=== PATIENT | female | born 1960 | race Caucasian/White ===

== ENCOUNTER 2021-09-26 22:03 | Observation (INO) ==
[2021-09-26] MEDS ORDERED: NITROGLYCERIN SL 0.4 MG/TAB TAB SL STA (22:23)
--- NOTE | 2021-09-26 22:26 | Emergency Department Note ---
Impression & Plan Elevated troponin, Hypertension, Creatinine elevation ADMIT ED Provider Note HPI: The patient is a 61-year-old female with history of hypertension, presents the emergency department with chief complaint of shortness of breath that has been worsening over the past several days. Patient states that her shortness of breath is worsened with exertion. She states that she does have it at rest as well however. Patient denies any fevers, denies any recent coughing, denies any nausea or vomiting, she denies any chest pain. On arrival here to the ED the patient is hypertensive and mildly tachycardic, she is otherwise afebrile, she is saturating well on room air on my initial evaluation. ROS: -Pulmonary: Shortness of breath *10 point review systems was conducted and is otherwise negative unless stated above *Outpatient medications and allergy history reviewed PE: General: Obese, alert, NAD HEENT: Normocephalic, atraumatic, trachea midline Eyes: Extraocular eye movement is intact, no scleral erythema Pulmonary: Diminished bilaterally without crackles or wheezing Cardio: Tachycardic rate with regular rhythm GI: Abdomen is soft, nontender : No suprapubic tenderness MSK: No evidence of trauma or malformation of the extremities, no edema Skin: No evidence of rash Neuro: Alert, no focal deficits Psychiatric: Cooperative panel monitor: - An order was placed for continuous cardiac monitoring - Patient was noted to be in sinus rhythm with rate of 110 CTA CHEST: No evidence of pulmonary emboli. Trace bilateral pleural effusions. No acute infiltration. Radiologist: Lincoln Vital MD EKG: Rate: 102 Rhythm: Sinus tachycardia Intervals: Within normal limits ST changes: No ST elevation Time: 2246 Medical Decision Making: Patient presented with increasing shortness of breath over the past several days, she is hypertensive on arrival, she is afebrile, she is saturating well on room air with some mild increased work of breathing on my initial assessment. Labwork shows evidence of a slightly elevated troponin at 0.065, GFR slightly reduced at 45, EKG does not show any acute ischemic changes. Given the patient's tachycardia and shortness of breath, I did order CT angiography that does not show any evidence of pulmonary embolism. Interventions included IV labetalol, sublingual nitroglycerin, IV Lasix. Blood pressure did downtrend to 172/83. Covid 19 testing is negative, on my reevaluation the patient's work of breathing is improved, tachycardia is improved. Her symptoms do seem to worsen with exertion, suspicious that she may have an element of fluid overload/pulmonary edema with her blood pressure being elevated. Given the troponin elevation in th e setting of elevated blood pressure I did discuss the case with the on-call hospitalist and the patient will be admitted to a telemetry bed for further management. She was given aspirin prior to admission. * CRITICAL CARE TIME: 35 minutes -Management of hypertension in the setting of elevated troponin, interpretation of diagnostic studies including EKG, requiring IV medications for systolic blood pressure control, time spent at the bedside, discussion with other physicians, arrangement of admission Diagnosis: 1. Malignant hypertension 2. Elevated troponin 3. Creatinine elevation 4. Dyspnea/shortness of breath Disposition: Admission Clint Martinez DO Emergency Medicine Past Med/Surg History Social History Smoking Status: Current every day smoker Preferred Language: [place] Feels Safe at Home: Yes Allergies Allergies Allergy/AdvReac Type Severity Reaction Status Date / Time TAPE Allergy Unknown Rash Uncoded 09/27/21 01:13 Home Meds Home Medications Medication Instructions Recorded Confirmed albuterol sulfate 90 mcg/actuation 2 puff INHALATION QID PRN 09/27/21 09/27/21 aerosol inhaler furosemide 40 mg tablet 40 mg PO DAILY PRN 09/27/21 09/27/21 tramadol 50 mg tablet 50 mg PO Q6 PRN 09/27/21 09/27/21 Results & Data (ED) Vital Signs Vital Signs - 24 hr 09/26/21 22:07 09/26/21 22:55 09/26/21 23:00 Temperature 36.0 C L Temperature Source Temporal Artery Scan Pulse Rate 116 H Pulse Rate [Right Finger] Respiratory Rate 24 Respiratory Effort / Characteristics Spontaneous Labored Short of Breath SOB on Exertion Respiratory Depth Normal Normal Respiratory Pattern Tachypnea Blood Pressure 198/122 H Blood Pressure [Right Arm] Blood Pressure Mean 147 Blood Pressure Mean [Right Arm] Pulse Oximetry 93 88 L 93 Oxygen Delivery Method Room Air Room Air Room Air Oxygen Flow Rate 0 Sepsis Recent Fever Within 48 Hours No Sepsis New/Unexplained Change in Mental Status N/A Sepsis Action Taken by Nursing No Action Required 09/27/21 00:04 09/27/21 00:08 09/27/21 02:00 Temperature Temperature Source Pulse Rate 80 Pulse Rate [Right Finger] 78 92 H Respiratory Rate 19 19 16 Respiratory Effort / Characteristics Respiratory Depth Respiratory Pattern Blood Pressure Blood Pressure [Right Arm] 193/105 H 199/94 H Blood Pressure Mean Blood Pressure Mean [Right Arm] 134 129 Pulse Oximetry 93 93 95 Oxygen Delivery Method Room Air Room Air Room Air Oxygen Flow Rate Sepsis Recent Fever Within 48 Hours Sepsis New/Unexplained Change in Mental Status Sepsis Action Taken by Nursing 09/27/21 02:17 Temperature Temperature Source Pulse Rate Pulse Rate [Right Finger] 90 Respiratory Rate 19 Respiratory Effort / Characteristics Respiratory Depth Respiratory Pattern Blood Pressure Blood Pressure [Right Arm] 172/83 H Blood Pressure Mean Blood Pressure Mean [Right Arm] 112 Pulse Oximetry 96 Oxygen Delivery Method Room Air Oxygen Flow Rate Sepsis Recent Fever Within 48 Hours Sepsis New/Unexplained Change in Mental Status Sepsis Action Taken by Nursing Laboratory Data Result diagrams: 09/26/21 23:00 09/26/21 23:00 Lab Results 09/26/21 09/26/21 09/26/21 Range/Units 23:00 23:00 23:00 WBC 12.86 H (4.8-10.8) K/uL RBC 5.06 (4.2-5.4) M/uL Hgb 13.4 (12.0-16.0) g/dL Hct 41.9 (37-47) % MCV 82.8 (80-100) fL MCH 26.5 (25-34) pg MCHC 32.0 (32-36) g/dL RDW Std Deviation 41.7 (36.4-46.3) fL RDW Coeff of Good 13.9 (11.5-14.5) % Plt Count 346 (130-400) K/uL MPV 10.8 H (7.4-10.4) fL Immature Gran % (Auto) 0.2 % Neut % (Auto) 77.2 % Lymph % (Auto) 13.5 % [place] % (Auto) 5.6 % Eos % (Auto) 3.1 % Baso % (Auto) 0.4 % Neut # (Auto) 9.93 H (1.4-6.5) K/uL Lymph # (Auto) 1.73 (1.2-3.4) K/uL [place] # (Auto) 0.72 H (0.11-0.59) K/uL Eos # (Auto) 0.40 (0-0.5) K/uL Baso # (Auto) 0.05 (0-0.2) K/uL Immature Gran # (Auto) 0.03 H (0.00-0.02) K/uL Absolute Nucleated RBC 0.11 H (0-0) K/uL Nucleated RBC % (auto) 0.9 % RBC Morphology Unremarkable PT 10.2 (9.0-12.0) Seconds INR 1.0 (0.9-1.1) APTT 31.2 H (21.0-31.0) Seconds PTT Ratio 1.2 Sodium 144 (136-145) mmol/L Potassium 3.5 (3.5-5.1) mmol/L Chloride 110 H (98-107) mmol/L Carbon Dioxide 26 (21-32) mmol/L Anion Gap 8.0 (3-11) BUN 16 (7-18) mg/dl Creatinine 1.26 H (0.6-1.2) mg/dl Est Cr Clr Drug Dosing 60.0 ml/min Est GFR ( Amer) 52.5 ml/min Est GFR (Non-Af Amer) 45.3 ml/min BUN/Creatinine Ratio 12.5 (10-20) Glucose 135 H (70-99) mg/dl Calcium 9.4 (8.5-10.1) mg/dl Magnesium 2.1 (1.8-2.4) mg/dl Total Bilirubin 0.3 (0.2-1) mg/dl AST 20 (15-37) U/L ALT 27 (12-78) Alkaline Phosphatase 101 (45-117) U/L Troponin I 0.065 H* (0-0.045) ng/ml Total Protein 7.7 (6.4-8.2) gm/dl Albumin 3.6 (3.4-5.0) gm/dl Globulin 4.1 H (2.5-4.0) gm/dl Albumin/Globulin Ratio 0.9 (0.9-2) SARS-CoV-2 (PCR) (Negative) Influenza Type A (PCR) (Neg) Influenza Type B (PCR) (Neg) RSV (RT-PCR) (Neg) 09/26/21 Range/Units 23:00 WBC (4.8-10.8) K/uL RBC (4.2-5.4) M/uL Hgb (12.0-16.0) g/dL Hct (37-47) % MCV (80-100) fL MCH (25-34) pg MCHC (32-36) g/dL RDW Std Deviation (36.4-46.3) fL RDW Coeff of Good (11.5-14.5) % Plt Count (130-400) K/uL MPV (7.4-10.4) fL Immature Gran % (Auto) % Neut % (Auto) % Lymph % (Auto) % [place] % (Auto) % Eos % (Auto) % Baso % (Auto) % Neut # (Auto) (1.4-6.5) K/uL Lymph # (Auto) (1.2-3.4) K/uL [place] # (Auto) (0.11-0.59) K/uL Eos # (Auto) (0-0.5) K/uL Baso # (Auto) (0-0.2) K/uL Immature Gran # (Auto) (0.00-0.02) K/uL Absolute Nucleated RBC (0-0) K/uL Nucleated RBC % (auto) % RBC Morphology PT (9.0-12.0) Seconds INR (0.9-1.1) APTT (21.0-31.0) Seconds PTT Ratio Sodium (136-145) mmol/L Potassium (3.5-5.1) mmol/L Chloride (98-107) mmol/L Carbon Dioxide (21-32) mmol/L Anion Gap (3-11) BUN (7-18) mg/dl Creatinine (0.6-1.2) mg/dl Est Cr Clr Drug Dosing ml/min Est GFR ( Amer) ml/min Est GFR (Non-Af Amer) ml/min BUN/Creatinine Ratio (10-20) Glucose (70-99) mg/dl Calcium (8.5-10.1) mg/dl Magnesium (1.8-2.4) mg/dl Total Bilirubin (0.2-1) mg/dl AST (15-37) U/L ALT (12-78) Alkaline Phosphatase (45-117) U/L Troponin I (0-0.045) ng/ml Total Protein (6.4-8.2) gm/dl Albumin (3.4-5.0) gm/dl Globulin (2.5-4.0) gm/dl Albumin/Globulin Ratio (0.9-2) SARS-CoV-2 (PCR) NEGATIVE (Negative) Influenza Type A (PCR) Negative (Neg) Influenza Type B (PCR) Negative (Neg) RSV (RT-PCR) Negative (Neg) Administered Medications Discontinued Medications Aspirin (Aspirin Chew 324 Mg) 324 mg PO NOW STA Stop: 09/27/21 00:03 Last Admin: 09/27/21 01:40 Dose: 324 mg Documented by: [id number] Furosemide (Furosemide 40 Mg/4 Ml Vial) 40 mg IV ONE ONE Stop: 09/27/21 01:34 Last Admin: 09/27/21 01:59 Dose: 40 mg Documented by: [id number] Hydralazine HCl (Hydralazine Hcl 20 Mg/Ml Vial) 10 mg IV NOW STA Stop: 09/27/21 01:45 Last Admin: 09/27/21 01:59 Dose: 10 mg Documented by: [id number] Ioversol (Optiray 320 125ml) 120 ml IV ONCE ONE Stop: 09/27/21 00:34 Last Admin: 09/27/21 00:33 Dose: 1 ml Documented by: [id number] Labetalol HCl (Labetalol Hcl Iv 5 Mg/Ml 20ml) 10 mg IV NOW STA Stop: 09/26/21 23:26 Last Admin: 09/26/21 23:46 Dose: 10 mg Documented by: [id number] Cosigned by: [id number] Nitroglycerin (Nitroglycerin Sl 0.4 Mg/Tab Tab) 0.4 mg SL NOW STA Stop: 09/26/21 22:24 Last Admin: 09/26/21 22:54 Dose: 0.4 mg Documented by: [id number] Discharge Plan Visit Data Chief Complaint: Shortness of Breath/Dyspnea Stated Complaint: SOB ED Provider: Clint Martinez Discharge Problem: Elevated troponin, Hypertension, Creatinine elevation Forms Stand Alone Forms: [facility] Prescriptions Prescriptions: No Action furosemide 40 mg tablet 40 mg PO DAILY PRN (Reason: swelling) RF: 0 tramadol 50 mg tablet 50 mg PO Q6 PRN (Reason: Pain) RF: 0 albuterol sulfate 90 mcg/actuation Hfa Aerosol Inhaler 2 puff INHALATION QID PRN (Reason: Shortness Of Breath Or Wheezing) RF: 0 Referrals Referrals: PCP,NO [Physician] - Discharge Problem: Hypertension Qualifiers: Hypertension type: unspecified Qualified Code(s): I10 - Essential (primary) hypertension
[2021-09-26 23:21] LABS: Partial Thromboplastin Ratio 1.2; Partial Thromboplastin Time 31.2 Seconds (21.0-31.0); Prothrombin Time 10.2 Seconds (9.0-12.0)
[2021-09-26] MEDS ORDERED: LABETALOL HCL IV 5 MG/ML 20ML IV STA (23:25)
[2021-09-26 23:28] LABS: Albumin Level 3.6 gm/dl (3.4-5.0); BUN Creatinine Ratio 12.5 (10-20); Calcium 9.4 mg/dl (8.5-10.1); Est GFR (African American) 52.5 ml/min; Est GFR (Non-African American) 45.3 ml/min; Magnesium 2.1 mg/dl (1.8-2.4); Potassium 3.5 mmol/L (3.5-5.1)
[2021-09-26 23:36] LABS: Basophils # (auto) 0.05 K/uL (0-0.2); Basophils % (auto) 0.4 %; Eosinophils % (auto) 3.1 %; Hematocrit (blood only) 41.9 % (37-47); Hemoglobin 13.4 g/dL (12.0-16.0); Immature Granulocytes # (auto) 0.03 K/uL (0.00-0.02); Immature Granulocytes % (auto) 0.2 %; Lymphocytes # (auto) 1.73 K/uL (1.2-3.4); Lymphocytes % (auto) 13.5 %; Mean Corpuscular Hemoglobin 26.5 pg (25-34); Mean Corpuscular Volume 82.8 fL (80-100); Mean Platelet Volume 10.8 fL (7.4-10.4); Monocytes # (auto) 0.72 K/uL (0.11-0.59); Monocytes % (auto) 5.6 %; Neutrophils # (auto) 9.93 K/uL (1.4-6.5); Neutrophils % (auto) 77.2 %; Nucleated RBC # (auto) 0.11 K/uL (0-0); Nucleated RBC % (auto) 0.9 %; Platelet Count 346 K/uL (130-400); RBC Morphology Unremarkable; RDW Coefficient of Variation 13.9 % (11.5-14.5); RDW Standard Deviation 41.7 fL (36.4-46.3); Red Blood Count 5.06 M/uL (4.2-5.4); White Blood Count 12.86 K/uL (4.8-10.8)
[2021-09-26 23:42] LABS: Albumin Globulin Ratio 0.9 (0.9-2); Globulin 4.1 gm/dl (2.5-4.0); Total Protein 7.7 gm/dl (6.4-8.2); Troponin I 0.065 ng/ml (0-0.045)
[2021-09-26 23:50] LABS: Bilirubin,Total 0.3 mg/dl (0.2-1)
[2021-09-27] MEDS ORDERED: ASPIRIN CHEW 324 MG PO STA (00:02)
[2021-09-27 00:06] LABS: Influenza A virus by PCR Negative (Neg); Influenza B virus by PCR Negative (Neg); RSV by PCR Negative (Neg); SARS CoV2 RNA(COVID-19) InHosp NEGATIVE (Negative)
[2021-09-27] MEDS ORDERED: OPTIRAY 320 125ml IV ONE (00:33)
[2021-09-27] MEDS ORDERED: FUROSEMIDE 40 MG/4 ML VIAL IV ONE (01:33)
[2021-09-27] MEDS ORDERED: hydrALAZINE HCL 20 MG/ML VIAL IV STA (01:44)
[2021-09-27] MEDS ORDERED: traMADol HCL 50 MG TABLET PO PRN (06:00)
[2021-09-27] MEDS ORDERED: FUROSEMIDE 40 MG TAB PO PRN (06:00)
[2021-09-27] MEDS ORDERED: POLYETHYLENE (MIRALAX) 17 GM PACK PO PRN (06:00)
[2021-09-27] MEDS ORDERED: NITROGLYCERIN SL 0.4 MG/TAB TAB SL PRN (06:00)
[2021-09-27] MEDS ORDERED: LEVALBUTEROL HCL 1.25 MG/3 ML NEB NEB PRN (06:00)
[2021-09-27] MEDS ORDERED: ALBUTEROL HFA 8 GM INHALER INH PRN (06:00)
[2021-09-27] MEDS ORDERED: ACETAMINOPHEN 325 MG TAB PO PRN (06:00)
[2021-09-27] MEDS ORDERED: LABETALOL HCL IV 5 MG/ML 20ML IV PRN (06:00)
--- NOTE | 2021-09-27 06:43 | History and Physical Report ---
DATE OF ADMISSION: 09/27/2021. CHIEF COMPLAINT: Shortness of breath. HISTORY OF PRESENT ILLNESS: This is a 61-year-old female with past medical history significant for hyperlipidemia, moderate sleep apnea, primary hypertension, chronic kidney disease stage III, morbid obesity, GERD, chronic pain syndrome, depression. Presents with shortness of breath. The patient says for the last couple of days, she is feeling short of breath. With minimal exertion, she is getting more short of breath, which prompted her to come to the ER today. She has pulse ox at home and even with some movement, her oxygen is dropping into the low 80s. Denies any cough, no fever, no chills, no chest pain, no headache, no dizziness, no blurred visions, no earache, no runny nose, no sore throat, no abdominal pain. Normal bowel and bladder movements. Appetite is okay. She uses Lasix as needed, but she ran out of her prescriptions. Also, she is supposed to be taking lisinopril for blood pressure, but she ran out of the prescription. She is cutting back on smoking. She is currently smoking 1/2 pack a day, but last two 2 days she did not smoke.Covid vaccinated.Says gained about 80pounds in last one year. Allergies NKDA. PMH As mentioned above. Past surgical history: Colonoscopy, Lumbo sacral injection, Cholecystectomy. Medications: Tramadol 50mg po q6hrs prn, Wellbutrin ER 200mg po bid, Lasix 40mg po daily prn, Lisnopril 10mg po daily(Ran out prescription) Albuterol INH q 4hr prn Family History: Father had liver cancer, HTN.Mother hasd Multiple myeloma and HTN. Brother had HI.. Social History. Lives alone. Currently smoking half pack a day. Trying to quit. No Alcohol or drug use. ROS; As per HPI. Rest of ROS negative. PE: GE Alert and oriented. Not in acute distress. Vitals: Temp Afebrile. BP:178/78, HR 88, RR 17, Oxygen 96% RA HEENT: Atraumatic Pupils [place] Neck No JVD No neck masses CVS S1 and S2 heard , Regular rate and rhythm, No murmurs' RS CTA b/l, no wheezing or crackles ABD: Soft Bowel sounds present, Non tender no distension FOSTER PARENT: CN 2-12 grossly intact. Non focal EXT b/l lower ext trace edema present. No erythema seen. LABS: wbc 12.8, hb 13.4, hct 41.9, platelets 346, PT 10.2, INR 1.0, APTT 31.2, Sodium 144, K 3.5, CL 110,C02 26, BUN 16, CR 1.2, Glucose 136, Ca 9.9, Mg 2.1, AST 20, ALT 27, AK PHOSP 101. Troponin 0.06. SARS COV -2 PCR negative, Influenza A and B pcr negative, RSV pcr negative. CTA chest [employer] PE. Mild pul edema. CXR Mild Pul congestion EKG Sinus Tachycardia 102. Non specific ST changes seen. A/P: 61YR old female with hx of morbid obesity , CECIL, HTN non compliant with mes presenst with SOB. SOB hx of CECIL ongoing tobacoon abuse but no wheezing CTA chest no PE but mild pul edema Possible CHF Possible uncontrolled HTN as patinet not taking her meds received a dose of iv lasix in ER Monitor in tele follow echo CArdiology consult Mild elevation of troponin mostly demand ischemia follow serial ce and echo HTN uncontrolled not taking meds start home lisinopril Labetalol prn CECIL cpap q hs Morbid obesity counselling Tobacco abuse counseling albuterol inh prn nebs prn. CKD stage 3 Cr 1.2 at baseline follow labs Depression on Wellbutrin Needs all prescriptions at discharge. DVT px Lovenox Disposition monitor in med/tele Full Code. Job ID: [id number] MTDD
[2021-09-27 07:12] LABS: Basophils # (auto) 0.04 K/uL (0-0.2); Basophils % (auto) 0.3 %; Eosinophils # (auto) 0.32 K/uL (0-0.5); Eosinophils % (auto) 2.5 %; Hematocrit (blood only) 40.4 % (37-47); Immature Granulocytes # (auto) 0.04 K/uL (0.00-0.02); Immature Granulocytes % (auto) 0.3 %; Lymphocytes # (auto) 1.84 K/uL (1.2-3.4); Lymphocytes % (auto) 14.1 %; Mean Corpuscular Hemoglobin 26.3 pg (25-34); Mean Corpuscular Hgb Conc 32.2 g/dL (32-36); Mean Corpuscular Volume 81.8 fL (80-100); Mean Platelet Volume 10.2 fL (7.4-10.4); Monocytes # (auto) 0.75 K/uL (0.11-0.59); Monocytes % (auto) 5.8 %; Neutrophils # (auto) 10.02 K/uL (1.4-6.5); Platelet Count 324 K/uL (130-400); RDW Coefficient of Variation 13.8 % (11.5-14.5); RDW Standard Deviation 41.5 fL (36.4-46.3); Red Blood Count 4.94 M/uL (4.2-5.4); White Blood Count 13.01 K/uL (4.8-10.8)
--- NOTE | 2021-09-27 07:17 | CT Scan Report ---
CHEST CTA for PULMONARY ARTERIES CT DOSE: 1107.02 mGy.cm HISTORY: Shortness of breath. TECHNIQUE: Multiaxial CT images of the chest were performed following the intravenous administration of contrast to evaluate the pulmonary arteries. Maximal intensity projection images were also obtaine d. A dose lowering technique was utilized adhering to the principles of ALARA. COMPARISON STUDY: Chest CTA 11/25/2008. FINDINGS: A 3.2 cm hypodense lesion within the left hepatic lobe. This has slightly increased in size but favors a cyst. The visualized spleen is unremarkable. There are trace bilateral pleural effusion s. No pericardial effusion. The heart is normal in size. Normal caliber esophagus. A few prominent me diastinal lymph nodes have slightly increased in size. It measures up to 9 mm in short S diameter and therefore do not meet CT criteria for pathologic involvement. No hilar lymphadenopathy. Normal calib er thoracic aorta with no evidence for dissection. No filling defects within the pulmonary arteries t o suggest a pulmonary embolus. No suspicious lytic or blastic osseous lesions. No pneumothorax. Mild interlobular septal thickening suggestive of mild pulmonary edema. There is patchy bibasilar densitie s likely representing dependent change. IMPRESSION: 1. No evidence for pulmonary embolus. 2. Mild interstitial pulmonary edema and trace bilateral pleural effusions. ACT 112: Negative or not required by law. Electronically signed by: Tacos Bach M.D. 09/27/2021 7:15 AM
--- NOTE | 2021-09-27 07:18 | XRay Report ---
XR chest 1V portable HISTORY: Shortness of breath. COMPARISON: Chest 11/25/2008. FINDINGS: The cardiac silhouette is mildly enlarged. There are trace bilateral pleural effusions. The re is mild central pulmonary vascular congestion without overt edema. No focal lung consolidations to suggest pneumonia. IMPRESSION: Cardiomegaly, trace bilateral pleural effusions, and mild pulmonary vascular congestion. ACT 112: Negative or not required by law. Electronically signed by: Tacos Bach M.D. 09/27/2021 7:17 AM
[2021-09-27 07:46] LABS: BUN Creatinine Ratio 15.1 (10-20); Calcium 9.8 mg/dl (8.5-10.1); Creatinine Clr Calc Pharmacy 63.6 ml/min; Est GFR (African American) 56.3 ml/min; Est GFR (Non-African American) 48.5 ml/min; Magnesium 2.2 mg/dl (1.8-2.4); Potassium 3.1 mmol/L (3.5-5.1)
--- NOTE | 2021-09-27 07:50 | Electrocardiogram Report ---
Test Reason : Blood Pressure : / mmHG Vent. Rate : 102 BPM Atrial Rate : 102 BPM P-R Int : 136 ms QRS Dur : 084 ms QT Int : 348 ms P-R-T Axes : 061 056 040 degrees QTc Int : 453 ms Sinus tachycardia Otherwise normal ECG When compared with ECG of 25-NOV-2008 11:04, Vent. rate has increased BY 47 BPM Non-specific change in ST segment in Anterior leads Nonspecific T wave abnormality no longer evident in Inferior leads T wave inversion no longer evident in Anterior leads QT has lengthened Confirmed by Gary Cyr [id number] on 09/27/2021 7:50:28 AM Referred By: REFERRED SELF Confirmed By:Nate Cyr
[2021-09-27 08:02] LABS: Troponin I 0.065 ng/ml (0-0.045)
[2021-09-27] MEDS: buPROPion SR 100 MG TABCR PO SCH ×2 (08:39→20:35)
[2021-09-27] MEDS: ENOXAPARIN INJ 40 MG/0.4 ML SYR SQ SCH ×2 (08:39→20:36)
[2021-09-27] MEDS: lisinopril 10 MG TAB PO SCH (08:39)
[2021-09-27] MEDS ORDERED: POTASSIUM CHLORIDE CRTAB 20 MEQ TABCR PO ONE (08:52)
--- NOTE | 2021-09-27 08:57 | Cardiology Consultation ---
Date of Consultation September 27, 2021 Assessment & Plan (1) Hypertensive urgency: (2) Acute on chronic diastolic HF (heart failure): (3) Elevated troponin: (4) CECIL (obstructive sleep apnea): (5) Non compliance w medication regimen: (6) Sinus tachycardia: Patient admitted for SOB and hypertensive urgency, likely in setting of non compliance with home medications. SHe has not been taking lisinopril for many months. Uses diuretic occasionally. Chest xray/chest CT consistent with pulm vascular congestion. echo with elevated LA pressures consistent with volume overload as well, otherwise normal wall motion, EF Elevated troponin consistent with hypertensive urgency. Her BP is trending down. continue lisinopril 10 mg Add carvedilol 6.25 mg BID given sinus tachycardia Change furosemide to 40 mg daily, rather than PRN dosing Supplement potassium. Monitor BP Recommend compliance with CPAP. Low sodium diet. Discharge pending on response to diuretic and additional antihypertensive therapy. Case discussed with Dr. Yoder. Will follow. Supervising Physician Co-Signing Physician Notes Patient seen and examined with Mira Deal PA-C. Agree with findings and assessment as above. Patient presents with hypertensive urgency and noncompliance with home medications. We will continue lisinopril and add carvedilol. Continue to monitor on telemetry overnight. History of Present Illness Reason for Consultation: SOB; Requesting Physician: Dr. Clarke Attending Physician: Dr. Yoder History of Present Illness Patient is a 61 year old female who presented to [facility] with complaints of worsening SOB. History is notable, per review of inpatient/outpatient records for hypertension, CKD, chronic pain syndrome, dyslipidemia, Obesity, and CECIL. No cardiac history. Patient apparently stopped taking her antihypertensives in Jun. She also was only taking furosemide several times per week. Over the last few weeks, patient reported worsening SOB with activities, mild LE edema, weight gain of approx 5- 10 lbs. Her SOB progressed yesterday so she came to ER for evaluation. Chest xray revealed pulm vascular congestion. BP was uncontrolled. Treated with IV labetalol and IV furosemide. Troponin borderline elevated, likely consistent with hypertensive emergency and acute diastolic HF. No chest pain reported by the patient. No acute EKG changes noted. At time of consult, patient reports feel better. Her SOB has improved since admission. Edema improved. No chest pain. BP remains high this morning. She also remains slightly tachycardic. Echo was completed demosntrated preserved LV function, diastolic dysfunction. Allergies Allergy/AdvReac Type Severity Reaction Status Date / Time TAPE Allergy Unknown Rash Uncoded 09/27/21 01:13 Home Medications Medication Instructions Recorded Confirmed Type albuterol sulfate 90 mcg/actuation 2 puff INHALATION QID PRN 09/27/21 09/27/21 History aerosol inhaler bupropion HCl 200 mg tablet,12 hr 200 mg PO BID #60 ea 09/28/21 Rx sustained-release carvedilol 6.25 mg tablet 6.25 mg PO BID #60 tab 09/28/21 Rx furosemide 40 mg tablet 40 mg PO Q2D #30 tab 09/28/21 Rx lisinopril 10 mg tablet 10 mg PO DAILY #30 tab 09/28/21 Rx tramadol 50 mg tablet 50 mg PO Q6 PRN #30 tab 09/28/21 Rx Patient History Social History Smoking Status: Current every day smoker Hx Alcohol Use: No Hx Substance Use: No Preferred Language: Singaporean Communication Ability: Effective Hat Finisher Required: Voice Beliefs That Will Affect Care: None marital status: Single Current Living Situation: Alone How many Children do You have: 0 Other Information That Helps Us Care for You: No Feels Safe at Home: Yes Safety Concerns: Feels Safe At This Time Assistive Devices: None Review of Systems Review of Systems: All systems reviewed & are unremarkable except as noted in HPI & below Physical Exam Constitutional: WD/WN, vitals as above + morbidly obese; no acute distress Eyes: PERRL, conjunctivae normal, anicteric sclerae Neck: trachea midline, no thyromegaly Cardiovascular: Rate/Rhythm: regular rate and + tachycardic Heart Sounds: normal S1 and normal S2; no murmur Vessels: no JVD Extremities: + edema (1+ LE edema) Gastrointestinal (Abdomen): normal bowel sounds, soft, nontender, no hepatosplenomegaly Skin: no rashes, warm and dry Neurologic: PERRL, EOMI, accommodation nl, no face palsy, no dysarthria Psychiatric: A+Ox3, euthymic affect Results & Data ([facility]) Vital Signs (Past 12 Hours) Vital Signs Temp Pulse Pulse Resp BP BP Pulse Ox 09/27/21 08:37 36.5 C 86 20 169/85 H 96 09/27/21 06:00 89 16 169/78 H 96 09/27/21 05:00 91 H 16 152/77 H 96 09/27/21 03:59 88 17 178/78 H 96 09/27/21 02:17 90 19 172/83 H 96 09/27/21 02:00 92 H 16 199/94 H 95 09/27/21 00:08 80 19 93 09/27/21 00:04 78 19 193/105 H 93 09/26/21 23:00 93 09/26/21 22:55 88 L 09/26/21 22:07 36.0 C L 116 H 24 198/122 H 93 Pulse Ox 09/27/21 08:37 09/27/21 06:00 96 09/27/21 05:00 09/27/21 03:59 09/27/21 02:17 09/27/21 02:00 09/27/21 00:08 09/27/21 00:04 09/26/21 23:00 09/26/21 22:55 09/26/21 22:07 Laboratory Results 09/27/21 09/27/21 09/26/21 Range/Units 07:00 07:00 23:00 WBC 13.01 H (4.8-10.8) K/uL RBC 4.94 (4.2-5.4) M/uL Hgb 13.0 (12.0-16.0) g/dL Hct 40.4 (37-47) % MCV 81.8 (80-100) fL MCH 26.3 (25-34) pg MCHC 32.2 (32-36) g/dL RDW Std Deviation 41.5 (36.4-46.3) fL RDW Coeff of Good 13.8 (11.5-14.5) % Plt Count 324 (130-400) K/uL MPV 10.2 (7.4-10.4) fL Immature Gran % (Auto) 0.3 % Neut % (Auto) 77.0 % Lymph % (Auto) 14.1 % [place] % (Auto) 5.8 % Eos % (Auto) 2.5 % Baso % (Auto) 0.3 % Neut # (Auto) 10.02 H (1.4-6.5) K/uL Lymph # (Auto) 1.84 (1.2-3.4) K/uL [place] # (Auto) 0.75 H (0.11-0.59) K/uL Eos # (Auto) 0.32 (0-0.5) K/uL Baso # (Auto) 0.04 (0-0.2) K/uL Immature Gran # (Auto) 0.04 H (0.00-0.02) K/uL Absolute Nucleated RBC (0-0) K/uL Nucleated RBC % (auto) % RBC Morphology PT (9.0-12.0) Seconds INR (0.9-1.1) APTT (21.0-31.0) Seconds PTT Ratio Sodium 141 (136-145) mmol/L Potassium 3.1 L (3.5-5.1) mmol/L Chloride 107 (98-107) mmol/L Carbon Dioxide 26 (21-32) mmol/L Anion Gap 8.0 (3-11) BUN 18 (7-18) mg/dl Creatinine 1.19 (0.6-1.2) mg/dl Est Cr Clr Drug Dosing 63.6 ml/min Est GFR ( Amer) 56.3 ml/min Est GFR (Non-Af Amer) 48.5 ml/min BUN/Creatinine Ratio 15.1 (10-20) Glucose 124 H (70-99) mg/dl Calcium 9.8 (8.5-10.1) mg/dl Magnesium 2.2 (1.8-2.4) mg/dl Total Bilirubin (0.2-1) mg/dl AST (15-37) U/L ALT (12-78) Alkaline Phosphatase (45-117) U/L Troponin I 0.065 H* (0-0.045) ng/ml Total Protein (6.4-8.2) gm/dl Albumin (3.4-5.0) gm/dl Globulin (2.5-4.0) gm/dl Albumin/Globulin Ratio (0.9-2) SARS-CoV-2 (PCR) NEGATIVE (Negative) Influenza Type A (PCR) Negative (Neg) Influenza Type B (PCR) Negative (Neg) RSV (RT-PCR) Negative (Neg) 09/26/21 09/26/21 09/26/21 Range/Units 23:00 23:00 23:00 WBC 12.86 H (4.8-10.8) K/uL RBC 5.06 (4.2-5.4) M/uL Hgb 13.4 (12.0-16.0) g/dL Hct 41.9 (37-47) % MCV 82.8 (80-100) fL MCH 26.5 (25-34) pg MCHC 32.0 (32-36) g/dL RDW Std Deviation 41.7 (36.4-46.3) fL RDW Coeff of Good 13.9 (11.5-14.5) % Plt Count 346 (130-400) K/uL MPV 10.8 H (7.4-10.4) fL Immature Gran % (Auto) 0.2 % Neut % (Auto) 77.2 % Lymph % (Auto) 13.5 % [place] % (Auto) 5.6 % Eos % (Auto) 3.1 % Baso % (Auto) 0.4 % Neut # (Auto) 9.93 H (1.4-6.5) K/uL Lymph # (Auto) 1.73 (1.2-3.4) K/uL [place] # (Auto) 0.72 H (0.11-0.59) K/uL Eos # (Auto) 0.40 (0-0.5) K/uL Baso # (Auto) 0.05 (0-0.2) K/uL Immature Gran # (Auto) 0.03 H (0.00-0.02) K/uL Absolute Nucleated RBC 0.11 H (0-0) K/uL Nucleated RBC % (auto) 0.9 % RBC Morphology Unremarkable PT 10.2 (9.0-12.0) Seconds INR 1.0 (0.9-1.1) APTT 31.2 H (21.0-31.0) Seconds PTT Ratio 1.2 Sodium 144 (136-145) mmol/L Potassium 3.5 (3.5-5.1) mmol/L Chloride 110 H (98-107) mmol/L Carbon Dioxide 26 (21-32) mmol/L Anion Gap 8.0 (3-11) BUN 16 (7-18) mg/dl Creatinine 1.26 H (0.6-1.2) mg/dl Est Cr Clr Drug Dosing 60.0 ml/min Est GFR ( Amer) 52.5 ml/min Est GFR (Non-Af Amer) 45.3 ml/min BUN/Creatinine Ratio 12.5 (10-20) Glucose 135 H (70-99) mg/dl Calcium 9.4 (8.5-10.1) mg/dl Magnesium 2.1 (1.8-2.4) mg/dl Total Bilirubin 0.3 (0.2-1) mg/dl AST 20 (15-37) U/L ALT 27 (12-78) Alkaline Phosphatase 101 (45-117) U/L Troponin I 0.065 H* (0-0.045) ng/ml Total Protein 7.7 (6.4-8.2) gm/dl Albumin 3.6 (3.4-5.0) gm/dl Globulin 4.1 H (2.5-4.0) gm/dl Albumin/Globulin Ratio 0.9 (0.9-2) SARS-CoV-2 (PCR) (Negative) Influenza Type A (PCR) (Neg) Influenza Type B (PCR) (Neg) RSV (RT-PCR) (Neg) Diagnostic Findings Telemetry reviewed - SInus and sinus tachycardia, occ PVC. No arrhythmias EKG reviewed - Sinus Tachycardia at 102 bpm, no acute ST/T wave changes Chest xray reviewed on admission - IMPRESSION: Cardiomegaly, trace bilateral pleural effusions, and mild pulmonary vascular congestion. Chest CTA report reviewed from admission: IMPRESSION: 1. No evidence for pulmonary embolus. 2. Mild interstitial pulmonary edema and trace bilateral pleural effusion Echo reviewed: Normal LV chamber size and wall thickness. EF 55-60% No wall motion abnormalities. Grade I diastolic dysfunction Mild MR Interatrial septum bows toward right atrium consistent with elevated LA pressure. Medications Administered Medications albuterol sulfate 90 mcg/actuation aerosol inhaler 2 puff INHALATION QID PRN 09/27/21 [History Confirmed 09/27/21] bupropion HCl 200 mg tablet,12 hr sustained-release 200 mg PO BID 09/27/21 [History Confirmed 09/27/21] furosemide 40 mg tablet 40 mg PO DAILY PRN 09/27/21 [History Confirmed 09/27/21] tramadol 50 mg tablet 50 mg PO Q6 PRN 09/27/21 [History Confirmed 09/27/21] Home Medications Acetaminophen (Acetaminophen 325 Mg Tab) 650 mg PO Q4H PRN PRN Reason: Pain or Fever Stop: 10/27/21 05:59 Albuterol (Albuterol Hfa 8 Gm Inhaler) 2 puffs INH QIDR PRN PRN Reason: Shortness Of Breath Or Wheezing Stop: 10/27/21 05:59 Bupropion HCl (Bupropion Sr 100 Mg Tabcr) 200 mg PO BID [facility] Stop: 10/27/21 08:59 Last Admin: 09/27/21 08:39 Dose: 200 mg Documented by: Enoxaparin Sodium (Enoxaparin Inj 40 Mg/0.4 Ml Syr) 40 mg SQ Q12 GUILLERMO Stop: 10/27/21 06:59 Last Admin: 09/27/21 08:39 Dose: 40 mg Documented by: Furosemide (Furosemide 40 Mg Tab) 40 mg PO DAILY PRN PRN Reason: swelling Stop: 10/27/21 05:59 Labetalol HCl (Labetalol Hcl Iv 5 Mg/Ml 20ml) 10 mg IV Q4H PRN PRN Reason: Hypertension Stop: 10/27/21 05:59 Levalbuterol HCl (Levalbuterol Hcl 1.25 Mg/3 Ml Neb) 1.25 mg NEB Q4R PRN; Protocol PRN Reason: Shortness Of Breath Or Wheezing Stop: 10/27/21 05:59 Lisinopril (Lisinopril 10 Mg Tab) 10 mg PO QAM [facility] Stop: 10/27/21 08:59 Last Admin: 09/27/21 08:39 Dose: 10 mg Documented by: Nitroglycerin (Nitroglycerin Sl 0.4 Mg/Tab Tab) 0.4 mg SL UD PRN PRN Reason: Chest Pain Stop: 10/27/21 05:59 Polyethylene Glycol (Polyethylene (Miralax) 17 Gm Pack) 17 gm PO DAILY PRN PRN Reason: Constipation Stop: 10/27/21 05:59 Potassium Chloride (Potassium Chloride Crtab 20 Meq Tabcr) 40 meq PO NOW ONE Stop: 09/27/21 08:53 Tramadol HCl (Tramadol Hcl 50 Mg Tablet) 50 mg PO Q6 PRN PRN Reason: Pain not relieved by Tylenol Stop: 10/27/21 05:59
[2021-09-27] MEDS: FUROSEMIDE 40 MG TAB PO SCH (12:12)
[2021-09-27] MEDS: carvediloL 6.25 MG TAB PO SCH ×2 (12:12→20:36)
--- NOTE | 2021-09-28 06:12 | Hospitalist Progress Note ---
Date of Service September 27, 2021 Assessment & Plan Admission and Anticipated Discharge Date Admission Date: September 27, 2021 Subjective Pt seen in the ED holding area. She is feeling much better, and inquiring about going home. Seen by cardiology earlier. Now pt's breathing is much improved, and BP is improved. Discussed her medications in detail. Cont. to closely monitor pt's response to meds. Cont. to monitor BP. Possibly DC tomorrow. Min Smith MD Results & Data Results & Data ([facility]) Vital Signs (Past 12 Hours) Vital Signs Pulse Resp BP Pulse Ox 09/27/21 22:00 65 19 130/75 92 09/27/21 21:30 70 18 94 09/27/21 21:00 61 21 140/74 91 09/27/21 20:34 89 20 163/84 H 93 09/27/21 20:30 75 21 82 L 09/27/21 20:00 69 18 91 09/27/21 19:30 69 19 92 09/27/21 19:00 68 20 91 09/27/21 18:30 80 22 94
[2021-09-28 06:21] LABS: Hematocrit (blood only) 39.7 % (37-47); Hemoglobin 12.9 g/dL (12.0-16.0); Mean Corpuscular Hemoglobin 26.4 pg (25-34); Mean Corpuscular Hgb Conc 32.5 g/dL (32-36); Mean Corpuscular Volume 81.4 fL (80-100); Mean Platelet Volume 10.2 fL (7.4-10.4); Platelet Count 309 K/uL (130-400); RDW Coefficient of Variation 13.9 % (11.5-14.5); RDW Standard Deviation 41.6 fL (36.4-46.3); Red Blood Count 4.88 M/uL (4.2-5.4); White Blood Count 9.67 K/uL (4.8-10.8)
[2021-09-28 07:01] LABS: BUN Creatinine Ratio 17.5 (10-20); Calcium 9.5 mg/dl (8.5-10.1); Est GFR (African American) 51.5 ml/min; Est GFR (Non-African American) 44.5 ml/min; Magnesium 2.3 mg/dl (1.8-2.4); Potassium 3.4 mmol/L (3.5-5.1)
[2021-09-28 07:02] LABS: Phosphorus 3.2 mg/dl (2.5-4.9)
[2021-09-28] MEDS: ENOXAPARIN INJ 40 MG/0.4 ML SYR SQ SCH (08:46)
[2021-09-28] MEDS: buPROPion SR 100 MG TABCR PO SCH (08:46)
[2021-09-28] MEDS: carvediloL 6.25 MG TAB PO SCH (08:46)
[2021-09-28] MEDS ORDERED: POTASSIUM CHLORIDE 10 MEQ TABCR PO SCH (09:00)
[2021-09-28] MEDS ORDERED: POTASSIUM CHLORIDE CRTAB 20 MEQ TABCR PO SCH (09:30)
[2021-09-28] MEDS: FUROSEMIDE 40 MG TAB PO SCH (10:13)
[2021-09-28] MEDS: lisinopril 10 MG TAB PO SCH (10:14)
--- NOTE | 2021-09-28 10:54 | Discharge Summary ---
Date of Service September 28, 2021 Admission HPI Per Admitting Provider HISTORY OF PRESENT ILLNESS: This is a 61-year-old female with past medical history significant for hyperlipidemia, moderate sleep apnea, primary hypertension, chronic kidney disease stage III, morbid obesity, GERD, chronic pain syndrome, depression. Presents with shortness of breath. The patient says for the last couple of days, she is feeling short of breath. With minimal exertion, she is getting more short of breath, which prompted her to come to the ER today. She has pulse ox at home and even with some movement, her oxygen is dropping into the low 80s. Denies any cough, no fever, no chills, no chest maría n, no headache, no dizziness, no blurred visions, no earache, no runny nose, no sore throat, no abdominal pain. Normal bowel and bladder movements. Appetite is okay. She uses Lasix as needed, but she ran out of her prescriptions. Also, she is supposed to be taking lisinopril for blood pressure, but she ran out of the prescription. She is cutting back on smoking. She is currently smoking 1/2 pack a day, but last two 2 days she did not smoke.Covid vaccinated.Says gained about 80pounds in last one year. Admission Exam Per Admitting Provider PE: GE Alert and oriented. Not in acute distress. Vitals: Temp Afebrile. BP:178/78, HR 88, RR 17, Oxygen 96% RA HEENT: Atraumatic Pupils [place] Neck No JVD No neck masses CVS S1 and S2 heard , Regular rate and rhythm, No murmurs' RS CTA b/l, no wheezing or crackles ABD: Soft Bowel sounds present, Non tender no distension ECHOCARDIOGRAPHY TECHNOLOGIST: CN 2-12 grossly intact. Non focal EXT b/l lower ext trace edema present. No erythema seen. Principal Diagnosis Hypertensive urgency Acute on chronic diastolic heart failure Noncompliance with medication regimen Elevated troponin Sinus tachycardia CECIL Obesity Discharge Exam CONSTITUTIONAL: obese , vitals as above, generally well-appearing, NAD EYES: normal conjunctivae, no scleral icterus ENT: external ear and nose normal, MMM NECK: trachea midline RESPIRATORY: clear to auscultation bilaterally, no crackles, rales or wheezes, normal respiratory effort CARDIOVASCULAR: regular rate and rhythm, S1 and 2 heard without murmurs, gallops or rubs, no JVD, no peripheral edema GASTROINTESTINAL: soft, nontender, ND, no guarding MUSCULOSKELETAL: strength 5/5 throughout, head is normocephalic and atraumatic SKIN: warm and dry NEUROLOGIC: CN 2-12 grossly intact, no sensory deficit, normal cognition, normal speech, no tremor, no gross focal deficits. PSYCHIATRIC: alert cooperative and oriented to person, place and time. Discharge Data Allergies Allergy/AdvReac Type Severity Reaction Status Date / Time TAPE Allergy Unknown Rash Uncoded 09/27/21 01:13 Consultations 09/27/21 02:05 ED Decision to Admit Stat 09/27/21 08:00 Consult Cardiology Routine Ordered Studies Laboratory Results WBC 9.67 K/uL (4.8-10.8) 09/28/21 05:48 RBC 4.88 M/uL (4.2-5.4) 09/28/21 05:48 Hgb 12.9 g/dL (12.0-16.0) 09/28/21 05:48 Hct 39.7 % (37-47) 09/28/21 05:48 MCV 81.4 fL (80-100) 09/28/21 05:48 MCH 26.4 pg (25-34) 09/28/21 05:48 MCHC 32.5 g/dL (32-36) 09/28/21 05:48 RDW Std Deviation 41.6 fL (36.4-46.3) 09/28/21 05:48 RDW Coeff of Good 13.9 % (11.5-14.5) 09/28/21 05:48 Plt Count 309 K/uL (130-400) 09/28/21 05:48 MPV 10.2 fL (7.4-10.4) 09/28/21 05:48 Immature Gran % (Auto) 0.3 % 09/27/21 07:00 Neut % (Auto) 77.0 % 09/27/21 07:00 Lymph % (Auto) 14.1 % 09/27/21 07:00 [place]on % (Auto) 5.8 % 09/27/21 07:00 Eos % (Auto) 2.5 % 09/27/21 07:00 Baso % (Auto) 0.3 % 09/27/21 07:00 Neut # (Auto) 10.02 K/uL (1.4-6.5) H 09/27/21 07:00 Lymph # (Auto) 1.84 K/uL (1.2-3.4) 09/27/21 07:00 Kenton # (Auto) 0.75 K/uL (0.11-0.59) H 09/27/21 07:00 Eos # (Auto) 0.32 K/uL (0-0.5) 09/27/21 07:00 Baso # (Auto) 0.04 K/uL (0-0.2) 09/27/21 07:00 Immature Gran # (Auto) 0.04 K/uL (0.00-0.02) H 09/27/21 07:00 Absolute Nucleated RBC 0.11 K/uL (0-0) H 09/26/21 23:00 Nucleated RBC % (auto) 0.9 % 09/26/21 23:00 RBC Morphology Unremarkable 09/26/21 23:00 PT 10.2 Seconds (9.0-12.0) 09/26/21 23:00 INR 1.0 (0.9-1.1) 09/26/21 23:00 APTT 31.2 Seconds (21.0-31.0) H 09/26/21 23:00 PTT Ratio 1.2 09/26/21 23:00 Sodium 139 mmol/L (136-145) 09/28/21 05:48 Potassium 3.4 mmol/L (3.5-5.1) L 09/28/21 05:48 Chloride 108 mmol/L (98-107) H 09/28/21 05:48 Carbon Dioxide 24 mmol/L (21-32) 09/28/21 05:48 Anion Gap 7.0 (3-11) 09/28/21 05:48 BUN 22 mg/dl (7-18) H 09/28/21 05:48 Creatinine 1.28 mg/dl (0.6-1.2) H 09/28/21 05:48 Est Cr Clr Drug Dosing 58.0 ml/min 09/28/21 05:48 Est GFR ( Amer) 51.5 ml/min 09/28/21 05:48 Est GFR (Non-Af Amer) 44.5 ml/min 09/28/21 05:48 BUN/Creatinine Ratio 17.5 (10-20) 09/28/21 05:48 Glucose 106 mg/dl (70-99) H 09/28/21 05:48 Calcium 9.5 mg/dl (8.5-10.1) 09/28/21 05:48 Phosphorus 3.2 mg/dl (2.5-4.9) 09/28/21 05:48 Magnesium 2.3 mg/dl (1.8-2.4) 09/28/21 05:48 Total Bilirubin 0.3 mg/dl (0.2-1) 09/26/21 23:00 AST 20 U/L (15-37) 09/26/21 23:00 ALT 27 (12-78) 09/26/21 23:00 Alkaline Phosphatase 101 U/L (45-117) 09/26/21 23:00 Troponin I 0.067 ng/ml (0-0.045) H* 09/27/21 12:04 Total Protein 7.7 gm/dl (6.4-8.2) 09/26/21 23:00 Albumin 3.6 gm/dl (3.4-5.0) 09/26/21 23:00 Globulin 4.1 gm/dl (2.5-4.0) H 09/26/21 23:00 Albumin/Globulin Ratio 0.9 (0.9-2) 09/26/21 23:00 SARS-CoV-2 (PCR) NEGATIVE (Negative) 09/26/21 23:00 Influenza Type A (PCR) Negative (Neg) 09/26/21 23:00 Influenza Type B (PCR) Negative (Neg) 09/26/21 23:00 RSV (RT-PCR) Negative (Neg) 09/26/21 23:00 Impressions Chest X-Ray 09/26/21 22:11 XR chest 1V portable HISTORY: Shortness of breath. COMPARISON: Chest 11/25/2008. FINDINGS: The cardiac silhouette is mildly enlarged. There are trace bilateral pleural effusions. There is mild central pulmonary vascular congestion without overt edema. No focal lung consolidations to suggest pneumonia. IMPRESSION: Cardiomegaly, trace bilateral pleural effusions, and mild pulmonary vascular congestion. ACT 112: Negative or not required by law. Electronically signed by: Tacos Bach M.D. 09/27/2021 7:17 AM Chest CTA 09/26/21 22:24 CHEST CTA for PULMONARY ARTERIES CT DOSE: 1107.02 mGy.cm HISTORY: Shortness of breath. TECHNIQUE: Multiaxial CT images of the chest were performed following the intravenous administration of contrast to evaluate the pulmonary arteries. M aximal intensity projection images were also obtained. A dose lowering technique was utilized adhering to the principles of ALARA. COMPARISON STUDY: Chest CTA 11/25/2008. FINDINGS: A 3.2 cm hypodense lesion within the left hepatic lobe. This has slightly increased in size but favors a cyst. The visualized spleen is unremarkable. There are trace bilateral pleural effusions. No pericardial effus ion. The heart is normal in size. Normal caliber esophagus. A few prominent mediastinal lymph nodes have slightly increased in size. It measures up to 9 mm in short S diameter and therefore do not meet CT criteria for pathologic involvement. No hilar lymphadenopathy. Normal caliber thoracic aorta with no evidence for dissection. No filling defects within the pulmonary arteries to suggest a pulmonary embolus. No suspicious lytic or blastic osseous lesions. No pneumothorax. Mild interlobular septal thickening suggestive of mild pulmonary edema. There is patchy bibasilar densities likely representing dependent change. IMPRESSION: 1. No evidence for pulmonary embolus. 2. Mild interstitial pulmonary edema and trace bilateral pleural effusions. ACT 112: Negative or not required by law. Electronically signed by: Tacos Bach M.D. 09/27/2021 7:15 AM Hospital Course (1) Hypertensive urgency: (2) Acute on chronic diastolic HF (heart failure): (3) Non compliance w medication regimen: (4) Elevated troponin: (5) Sinus tachycardia: (6) CECIL (obstructive sleep apnea): (7) Obesity: Patient is a 61-year-old female who presented with shortness of breath for a couple of days, found to have hypertensive urgency. She reports noncompliance with blood pressure medications and other medications for the last 2 months for various life reasons. She was admitted to the hospitalist service and a chest CT with contrast revealed no evidence of pulmonary embolism with mild pulmonary edema present. Cardiology was consulted and she was treated with intravenous furosemide for acute on chronic diastolic heart failure. An echocardiogram was performed revealing elevated left atrial pressures consistent with volume overload as well. She was noted to otherwise have normal wall motion with a normal ejection fraction. Her elevated troponin was consistent with hypertensive urgency, not ACS. Her home dose of lisinopril was resumed and after being diuresed with several doses of Lasix she felt improved. She was also started on carvedilol to treat both the hypertension and sinus tachycardia which improved. Potassium was supplemented as needed, however, patient reports every other day Lasix dosing in the past without having to have her supplement potassium. Basic metabolic panel in 2 weeks was recommended. Given her cardiac risk factors and mildly elevated troponin a dobutamine stress echocardiogram is recommended as an outpatient. This to be arranged by [facility] cardiology in the [place] office in about 2 weeks. Compliance with outpatient CPAP was also recommended with a low-sodium diet. At time of discharge she was mentating and ambulating at baseline and tolerating p.o. She was hemodynamically stable with blood pressure significantly improved and symptoms completely resolved. She was discharged in stable condition with close primary care follow-up recommended. Total Time Total Time Spent Total Time Spent (In Minutes): 60 Discharge Plan Discharge Items Patient Disposition: Home - Self-Care Reason For Visit: SOB Discharge Diagnosis: Hypertensive urgency Acute on chronic diastolic heart failure Condition on Discharge: Good Activity: Resume your previous activity Non-emergency contact: Primary Care Provider Call non-emergency contact if: you have any medication questions, your symptoms worsen, your pain is not controlled, your pain is worsening, your pain is unusual for you and your pain is concerning for you Follow-up/Referrals: Ezequiel Sky MD [Primary Care Provider] - (Date & Time 10/04/2021 3:00 PM Provider Ezequiel Sky MD Department Family Medicine [facility] ) Diet: Low Sodium (2gm) Addtl Attending Provider Instructions: Please take all medications as instructed on discharge list below. You have been prescribed a new blood pressure medication to take called carvedilol. Please continue this in addition to your daily lisinopril and your furosemide every other day. As you have recently restarted medications that can change your electrolytes and kidney function, a BASIC METABOLIC PANEL is recommended in two weeks time. This may be checked by your primary care physician (PCP) on followup. Please follow-up with your PCP in 1-2 weeks after discharge from the hospital to recheck your blood pressure, your bloodwork and ensure you are still doing well since returning home. Please follow-up with [facility] Cardiology as instructed. It was a pleasure taking care of you! Please call if you have any questions or problems. You can reach a [facility] hospitalist on duty at [facility] 24 hours a day by calling [phone]. Take care of yourself. Pamela Go, DO [facility] Hospitalist Pending Studies at Discharge: No Stand-Alone Forms: My [facility] Medications and DC Order Prescriptions: New carvedilol 6.25 mg Tablet 6.25 mg PO BID Qty: 60 RF: 1 Continued albuterol sulfate 90 mcg/actuation Hfa Aerosol Inhaler 2 puff INHALATION QID PRN (Reason: Shortness Of Breath Or Wheezing) RF: 0 furosemide 40 mg tablet 40 mg PO Q2D Qty: 30 RF: 1 tramadol 50 mg tablet 50 mg PO Q6 PRN (Reason: Pain) Qty: 30 RF: 0 lisinopril 10 mg tablet 10 mg PO DAILY Qty: 30 RF: 1 bupropion HCl 200 mg tablet sustained-release 12 hr 200 mg PO BID Qty: 60 RF: 0 Discharge Orders: Discharge Order (Routine); Ordered 09/28/21 Ordered By: Pamela Go Admission Data Admit Date/Time: 09/27/21 04:04 Attending Provider: Pamela Go Admit Provider: Sean Clarke Primary Care Provider: Ezequiel Sky Other Providers: Sean Clarke ; Howie Yoder ; Gayathri Metcalf
--- NOTE | 2021-09-28 10:56 | Cardiology Progress Note ---
Date of Service September 28, 2021 Assessment & Plan (1) Hypertensive urgency: (2) Acute on chronic diastolic HF (heart failure): (3) Elevated troponin: (4) CECIL (obstructive sleep apnea): (5) Non compliance w medication regimen: (6) Sinus tachycardia: Plan: Patient admitted for SOB and hypertensive urgency, likely in setting of non compliance with home medications. SHe has not been taking lisinopril for many months. Uses diuretic occasionally. Chest xray/chest CT consistent with pulm vascular congestion. echo with elevated LA pressures consistent with volume overload as well, otherwise normal wall motion, EF Elevated troponin consistent with hypertensive urgency. Home dose lisinopril resumed. She diuresed with several doses of lasix. Continue furosemide 40 mg on discharge. Close f/u with BMP recommended Carvedilol was also added due to HTN and sinus tach, now improved. Discharge on 6.25 mg BID. Supplement potassium. Ordered Recommend compliance with CPAP. Low sodium diet. Given her cardiac risk factors and mildly elevated troponin, will likely recommend dobutamine stress echo as outpatient. Will arrange about 2 week f/u in [place] office. If fluid status and BP are controlled, will order stress at that time. Case discussed with Dr. Yoder. stable for discharge from cardiac perspective. Admission and Anticipated Discharge Date Admission Date: September 27, 2021 Supervising Physician Co-Signing Physician Notes Patient seen and examined with Mira Deal PA-C. Agree with findings and assessment as above. Okay to discharge to home with recommendations as above. Subjective Patient resting in bed comfortably. Denies acute complaints. SOB resolved. BP and HR trending down. tolerating med changes. Requesting discharge today. No chest pain. No orthopnea, PND or increased edema. Review of Systems Review of Systems: All systems reviewed & are unremarkable except as noted in HPI & below Physical Exam Constitutional: WD/WN, vitals as above + morbidly obese; no acute distress Eyes: PERRL, conjunctivae normal, anicteric sclerae Neck: trachea midline, no thyromegaly Cardiovascular: Rate/Rhythm: regular rate and regular rhythm Heart Sounds: normal S1 and normal S2; no murmur Vessels: no JVD Extremities: + edema (trace) Gastrointestinal (Abdomen): normal bowel sounds, soft, nontender, no hepatosplenomegaly Skin: no rashes, warm and dry Neurologic: PERRL, EOMI, accommodation nl, no face palsy, no dysarthria Psychiatric: A+Ox3, euthymic affect Results & Data ([facility]) Vital Signs (Past 12 Hours) Vital Signs Pulse Ox 09/28/21 06:00 95 Laboratory Results 09/28/21 09/28/21 09/27/21 Range/Units 05:48 05:48 12:04 WBC 9.67 (4.8-10.8) K/uL RBC 4.88 (4.2-5.4) M/uL Hgb 12.9 (12.0-16.0) g/dL Hct 39.7 (37-47) % MCV 81.4 (80-100) fL MCH 26.4 (25-34) pg MCHC 32.5 (32-36) g/dL RDW Std Deviation 41.6 (36.4-46.3) fL RDW Coeff of Good 13.9 (11.5-14.5) % Plt Count 309 (130-400) K/uL MPV 10.2 (7.4-10.4) fL Sodium 139 (136-145) mmol/L Potassium 3.4 L (3.5-5.1) mmol/L Chloride 108 H (98-107) mmol/L Carbon Dioxide 24 (21-32) mmol/L Anion Gap 7.0 (3-11) BUN 22 H (7-18) mg/dl Creatinine 1.28 H (0.6-1.2) mg/dl Est Cr Clr Drug Dosing 58.0 ml/min Est GFR ( Amer) 51.5 ml/min Est GFR (Non-Af Amer) 44.5 ml/min BUN/Creatinine Ratio 17.5 (10-20) Glucose 106 H (70-99) mg/dl Calcium 9.5 (8.5-10.1) mg/dl Phosphorus 3.2 (2.5-4.9) mg/dl Magnesium 2.3 (1.8-2.4) mg/dl Troponin I 0.067 H* 09/27/21 Range/Units 10:44 WBC (4.8-10.8) K/uL RBC (4.2-5.4) M/uL Hgb (12.0-16.0) g/dL Hct (37-47) % MCV (80-100) fL MCH (25-34) pg MCHC (32-36) g/dL RDW Std Deviation (36.4-46.3) fL RDW Coeff of Good (11.5-14.5) % Plt Count (130-400) K/uL MPV (7.4-10.4) fL Sodium (136-145) mmol/L Potassium (3.5-5.1) mmol/L Chloride (98-107) mmol/L Carbon Dioxide (21-32) mmol/L Anion Gap (3-11) BUN (7-18) mg/dl Creatinine (0.6-1.2) mg/dl Est Cr Clr Drug Dosing ml/min Est GFR ( Amer) ml/min Est GFR (Non-Af Amer) ml/min BUN/Creatinine Ratio (10-20) Glucose (70-99) mg/dl Calcium (8.5-10.1) mg/dl Phosphorus (2.5-4.9) mg/dl Magnesium (1.8-2.4) mg/dl Troponin I Cancelled Diagnostic Findings Telemetry reviewed - NSR, occ PVC. no concerning arrhythmias. HR's improved and now predominantly < 100 bpm Medications Administered Current Inpatient Medications Acetaminophen (Acetaminophen 325 Mg Tab) 650 mg PO Q4H PRN PRN Reason: Pain or Fever Stop: 10/27/21 05:59 Last Admin: 09/27/21 09:46 Dose: 650 mg Documented by: Albuterol (Albuterol Hfa 8 Gm Inhaler) 2 puffs INH QIDR PRN PRN Reason: Shortness Of Breath Or Wheezing Stop: 10/27/21 05:59 Bupropion HCl (Bupropion Sr 100 Mg Tabcr) 200 mg PO BID [facility] Stop: 10/27/21 08:59 Last Admin: 09/28/21 08:46 Dose: 200 mg Documented by: Carvedilol (Carvedilol 6.25 Mg Tab) 6.25 mg PO BID [facility] Stop: 10/27/21 10:59 Last Admin: 09/28/21 08:46 Dose: 6.25 mg Documented by: Enoxaparin Sodium (Enoxaparin Inj 40 Mg/0.4 Ml Syr) 40 mg SQ Q12 [facility] Stop: 10/27/21 06:59 Last Admin: 09/28/21 08:46 Dose: 40 mg Documented by: Furosemide (Furosemide 40 Mg Tab) 40 mg PO DAILY [facility] Stop: 10/27/21 10:59 Last Admin: 09/28/21 10:13 Dose: 40 mg Documented by: Labetalol HCl (Labetalol Hcl Iv 5 Mg/Ml 20ml) 10 mg IV Q4H PRN PRN Reason: Hypertension Stop: 10/27/21 05:59 Levalbuterol HCl (Levalbuterol Hcl 1.25 Mg/3 Ml Neb) 1.25 mg NEB Q4R PRN; Protocol PRN Reason: Shortness Of Breath Or Wheezing Stop: 10/27/21 05:59 Lisinopril (Lisinopril 10 Mg Tab) 10 mg PO QAM [facility] Stop: 10/27/21 08:59 Last Admin: 09/28/21 10:14 Dose: 10 mg Documented by: Nitroglycerin (Nitroglycerin Sl 0.4 Mg/Tab Tab) 0.4 mg SL UD PRN PRN Reason: Chest Pain Stop: 10/27/21 05:59 Polyethylene Glycol (Polyethylene (Miralax) 17 Gm Pack) 17 gm PO DAILY PRN PRN Reason: Constipation Stop: 10/27/21 05:59 Potassium Chloride (Potassium Chloride Crtab 20 Meq Tabcr) 20 meq PO DAILY [facility] Stop: 10/28/21 09:29 Last Admin: 09/28/21 10:23 Dose: 20 meq Documented by: Tramadol HCl (Tramadol Hcl 50 Mg Tablet) 50 mg PO Q6 PRN PRN Reason: Pain not relieved by Tylenol Stop: 10/27/21 05:59
== END 2021-09-28 13:17 | disposition home or self-care (01) ==
LOC: ED 22:03 → EDINP 22:03 → SUATTDRO 09-27 04:04 → EDINP 09-27 19:00